=== PATIENT | female | born 1940 | race Caucasian/White ===

== ENCOUNTER 2017-11-19 02:30 | Outpatient (CLI) | payer MEDICARE, SELFPAY ==
[2017-11-19 11:42] LABS: C-Reactive Protein 0.13 mg/dL (0.0-0.3)
== END 2017-11-19 02:50 ==
PROVIDERS: PCP Internal Medicine; Visit Provider Orthopaedic Surgery
DX: T84.52XA Infection and inflammatory reaction due to internal left hip prosthesis, initial encounter (principal); Z96.642 Presence of left artificial hip joint
CPT/HCPCS: 36415; 99212; 99213; 86140

== ENCOUNTER 2018-01-20 02:04 | Outpatient (CLI) | payer MEDICARE, SELFPAY ==
[2018-01-20 10:58] LABS: C-Reactive Protein 0.58 mg/dL (0.0-0.3)
== END 2018-01-20 02:24 ==
PROVIDERS: PCP Internal Medicine; Visit Provider Orthopaedic Surgery
DX: T84.52XD Infection and inflammatory reaction due to internal left hip prosthesis, subsequent encounter (principal); Z96.642 Presence of left artificial hip joint; Z79.2 Long term (current) use of antibiotics
CPT/HCPCS: 36415; 99213; 86140

== ENCOUNTER → 2018-05-14 09:43 | Outpatient (BNVA) | payer MEDICARE, SELFPAY | PROVIDERS: PCP Internal Medicine; Referring Provider Internal Medicine; Visit Provider Orthopaedic Surgery | DX: Z47.1 Aftercare following joint replacement surgery (principal); Z96.642 Presence of left artificial hip joint; R60.0 Localized edema | CPT/HCPCS: 99211; 99213 ==